=== PATIENT | male | born 1960 | race African-American/Black ===

== ENCOUNTER 2018-02-17 16:23 | Emergency (ER) | payer MEDICAID ==
[~2018-02-17] VITALS: Ht 170.2 cm; Wt 85.0 kg
[2018-02-17] MEDS ORDERED: SODIUM CHLORIDE 0.9% 1,000 ML IV ONE (16:39)
[2018-02-17] MEDS ORDERED: NALOXONE HCL 1 MG/ML 2ML VIAL ONE ×2 (16:43→16:48)
[2018-02-17] MEDS ORDERED: NALOXONE HCL 1 MG/ML 2ML VIAL IV ONE (16:45)
[2018-02-17 17:16] LABS: BASOPHILS % 0.5 % (0.0-2.0); EOSINOPHILS % 0.6 % (0.0-5.0); HEMATOCRIT. 34.7 % (42.0-52.0); LYMPHOCYTES % 34.4 % (20.0-50.0); MEAN CORPUSCULAR HEMOGLOBIN 30.5 pg (28.0-32.0); MEAN CORPUSCULAR VOLUME 88.2 fL (80.0-94.0); MEAN PLATELET VOLUME 7.4 fl (7.4-10.4); MONOCYTES % 5.8 % (2.0-8.0); NEUTROPHILS % 58.7 % (40.0-76.0); PLATELET 339 x1000/uL (130-400); RED BLOOD CELL COUNT 3.94 mill/uL (4.7-6.1); RED CELL DISTRIBUTION WIDTH 16.7 % (11.6-14.6)
[2018-02-17 17:23] LABS: PROTHROMBIN TIME 10.7 sec (9.4-11.6)
[2018-02-17 17:25] LABS: CHLORIDE 108 mEq/L (98-107)
[2018-02-17 17:31] LABS: CREATINE KINASE 145 IU/L (39-308)
[2018-02-17 17:36] LABS: BG BASE EXCESS -7.3 mmol/L (-2.0-2.0); BG CARBOXYHEMOGLOBIN 2.3 % (0.5-1.5); BG DEOXYHEMOGLOBIN 2.1 % (0.0-5.0); BG FRACTION INSPIRED OXYGEN 28; BG HCO3 ACT 17.1 mmol/L (22.0-26.0); BG METHEMOGLOBIN 0.3 % (0.0-1.5); BG OXYGEN SATURATION 97.8 % (92.0-98.5); BG OXYHEMOGLOBIN 95.3 % (94.0-97.0); BG PCO2 31.1 mmHg (35.0-45.0); BG PH 7.357 (7.350-7.450); BG PO2 131.9 mmHg (75.0-100.0); BG SAMPLE SITE RIGHT RADIAL; BG TOTAL HEMOGLOBIN 12.1 g/dL (12.0-18.0); BG VENT MODE NASAL CANNULA
[2018-02-17 17:46] LABS: AMMONIA 77 uMol/L (<32)
[2018-02-17 17:53] LABS: ETHANOL BLOOD 440 mg/dL
[2018-02-17 18:58] LABS: CLARITY URINE CLEAR (CLEAR); COLOR URINE YELLOW (YELLOW); KETONES URINE NEGATIVE (NEGATIVE); LEUKOCYTE ESTERASE URINE NEGATIVE (NEGATIVE); NITRITE URINE NEGATIVE (NEGATIVE); OCCULT BLOOD URINE NEGATIVE (NEGATIVE); PROTEIN URINE NEGATIVE (NEGATIVE); SPECIFIC GRAVITY URINE 1.009 (1.005-1.030); UROBILINOGEN URINE 0.2 E.U./dL (0.2-1.0)
[2018-02-17] MEDS ORDERED: LORAZEPAM 2MG/ML CPJ IV ONE (19:00)
[2018-02-17 19:08] LABS: *BARBITURATES SCREEN URINE NEGATIVE (NEGATIVE); *BENZODIAZEPINES SCREEN URINE NEGATIVE (NEGATIVE); *COCAINE SCREEN URINE NEGATIVE (NEGATIVE); CANNABINOID URINE SCREEN NEGATIVE (NEGATIVE)
[2018-02-17 19:09] LABS: *AMPHETAMINES SCREEN URINE NEGATIVE (NEGATIVE); METHADONE URINE SCREEN NEGATIVE (NEGATIVE); OPIATES URINE SCREEN NEGATIVE (NEGATIVE); PHENCYCLIDINE URINE SCREEN NEGATIVE (NEGATIVE)
[2018-02-18 06:19] VITALS: BP 125/85
== END 2018-02-18 08:17 | disposition home or self-care (01) ==
LOC: ER 16:35
DX: T51.0X1A Toxic effect of ethanol, accidental (unintentional), initial encounter (principal); G92 Toxic encephalopathy; F10.129 Alcohol abuse with intoxication, unspecified; Y90.8 Blood alcohol level of 240 mg/100 ml or more; T50.901A Poisoning by unspecified drugs, medicaments and biological substances, accidental (unintentional), initial encounter; F19.10 Other psychoactive substance abuse, uncomplicated; Y92.89 Other specified places as the place of occurrence of the external cause
CPT/HCPCS: 36415; 36600; 70450; 71045; 80053; 80305; 80307; 80329; 81003; 82140; 82375; 82550; 82805; 82962; 84443; 84484; 85025; 85610; 93005; 96361; 96374; 96375; 99285; G0482; J2060; J2310; J7030; Z7610

== ENCOUNTER 2020-03-23 21:59 | Inpatient (IN) | payer MEDICAID ==
[~2020-03-23] VITALS: Ht 170.2 cm; Wt 77.1 kg
[2020-03-23] MEDS ORDERED: KETOROLAC 60MG/2ML VIAL IM ONE (23:00)
[2020-03-24 00:31] LABS: BASOPHILS % 0.7 % (0.0-2.0); EOSINOPHILS % 1.9 % (0.0-5.0); HEMATOCRIT. 36.7 % (42.0-52.0); HEMOGLOBIN. 12.3 g/dL (14.0-18.0); LYMPHOCYTES % 24.6 % (20.0-50.0); MEAN CORPUSCULAR HEMOGLOBIN 30.1 pg (28.0-32.0); MEAN PLATELET VOLUME 7.3 fl (7.4-10.4); NEUTROPHILS % 66.8 % (40.0-76.0); PLATELET 273 x1000/uL (130-400); RED BLOOD CELL COUNT 4.08 mill/uL (4.7-6.1); RED CELL DISTRIBUTION WIDTH 14.3 % (11.6-14.6)
[2020-03-24 00:39] LABS: CHLORIDE 109 mEq/L (98-107)
[2020-03-24 01:41] LABS: PROTHROMBIN TIME 10.7 sec (9.6-11.0)
[2020-03-24 02:13] LABS: BASOPHILS % 0.7 % (0.0-2.0); EOSINOPHILS % 0.8 % (0.0-5.0); HEMATOCRIT. 31.9 % (42.0-52.0); HEMOGLOBIN. 10.8 g/dL (14.0-18.0); LYMPHOCYTES % 16.6 % (20.0-50.0); MEAN CORPUSCULAR VOLUME 88.3 fL (80.0-94.0); MONOCYTES % 5.4 % (2.0-8.0); NEUTROPHILS % 76.5 % (40.0-76.0); PLATELET 262 x1000/uL (130-400); RED BLOOD CELL COUNT 3.61 mill/uL (4.7-6.1); RED CELL DISTRIBUTION WIDTH 14.3 % (11.6-14.6)
[2020-03-24 02:20] LABS: CHLORIDE 109 mEq/L (98-107); INR 0.9; PROTHROMBIN TIME 10.3 sec (9.6-11.0)
[2020-03-24] MEDS ORDERED: CLONIDINE 0.1MG TABLET PO PRN (03:00)
[2020-03-24] MEDS ORDERED: ACETAMINOPHEN 325MG TABLET PO PRN (03:00)
[2020-03-24] MEDS ORDERED: MAGNESIUM/ALUMINUM HYDROXIDE/SIMETHICONE 30ML UDC PO PRN (03:00)
[2020-03-24] MEDS ORDERED: ONDANSETRON HCL 4MG/2ML INJ IV PRN (03:00)
[2020-03-24] MEDS ORDERED: SODIUM CHLORIDE 0.9% 1,000 ML IV SCH (03:13)
[2020-03-24] MEDS ORDERED: DIPHENHYDRAMINE 50MG/ML VIAL IV ONE ×2 (03:15)
[2020-03-24] MEDS ORDERED: IOHEXOL-300 100 ML BOTTLE ONE (03:53)
[2020-03-24] MEDS: DEXT 5%/0.45% NACL 1000ML 1,000 ML IV SCH (04:48)
[2020-03-24 10:15] VITALS: BP 133/88
[2020-03-24] MEDS: AMLODIPINE 10MG TABLET PO SCH (10:30)
[2020-03-24] MEDS: ENOXAPARIN 40MG/0.4ML SYR SUBCUT SCH (11:00)
[2020-03-24] MEDS ORDERED: BACITRACIN 50,000 UNITS/VIAL ONE (11:40)
[2020-03-24] MEDS ORDERED: VANCOMYCIN HCL 1 GM/VIAL ONE (11:40)
[2020-03-24 12:00] VITALS: BP 138/88
[2020-03-24] MEDS: MORPHINE SULFATE 2 MG/ML CPJ (NOT FOR IM USE) IV PRN ×2 (12:26→19:33)
[2020-03-24] MEDS ORDERED: FENTANYL CITRATE/PF 50MCG/ML 2ML VIAL ONE (14:40)
[2020-03-24] MEDS ORDERED: LIDOCAINE HCL/PF 1% 10 MG/ML 5ML VIAL ONE (14:41)
[2020-03-24] MEDS ORDERED: PROPOFOL 200MG/20ML VIAL IV ONE (14:41)
[2020-03-24] MEDS ORDERED: MIDAZOLAM HCL 2 MG/2 ML VIAL ONE (14:41)
[2020-03-24] MEDS ORDERED: ROCURONIUM BROMIDE 10MG/ML VIAL 5ML IV ONE (14:47)
[2020-03-24] MEDS: CEFAZOLIN 1000MG PREMIX 50 ML IV SCH ×2 (15:00→23:53)
[2020-03-24] MEDS ORDERED: SUCCINYLCHOLINE CHLORIDE 200MG/10ML IV ONE (15:01)
[2020-03-24] MEDS ORDERED: ONDANSETRON HCL 4MG/2ML INJ ONE (15:04)
[2020-03-24] MEDS ORDERED: METOCLOPRAMIDE HCL 10MG/2ML VIAL ONE (15:04)
[2020-03-24] MEDS ORDERED: SODIUM CHLORIDE 0.9% 10ML VIAL ONE (15:06)
[2020-03-24] MEDS ORDERED: CEFAZOLIN SODIUM 1000MG/VIAL ONE (15:06)
[2020-03-24] MEDS ORDERED: EPHEDRINE SULFATE 50MG/ML VIAL ONE (15:06)
[2020-03-24 20:00] VITALS: BP 136/80
[2020-03-24] MEDS: HYDROCODONE/ACETAMINOPHEN 5/325MG TABLET PO PRN (23:59)
[2020-03-25] VITALS: BP 134/81
[2020-03-25 04:00] VITALS: BP 139/84
[2020-03-25] MEDS: HYDROCODONE/ACETAMINOPHEN 5/325MG TABLET PO PRN ×3 (04:22→20:03)
[2020-03-25 06:42] LABS: BASOPHILS % 0.3 % (0.0-2.0); EOSINOPHILS % 3.4 % (0.0-5.0); HEMATOCRIT. 28.3 % (42.0-52.0); HEMOGLOBIN. 9.5 g/dL (14.0-18.0); LYMPHOCYTES % 15.2 % (20.0-50.0); MEAN CORPUSCULAR HEMOGLOBIN 30.3 pg (28.0-32.0); MEAN CORPUSCULAR VOLUME 89.7 fL (80.0-94.0); MEAN PLATELET VOLUME 7.5 fl (7.4-10.4); MONOCYTES % 7.5 % (2.0-8.0); NEUTROPHILS % 73.6 % (40.0-76.0); PLATELET 236 x1000/uL (130-400); RED BLOOD CELL COUNT 3.15 mill/uL (4.7-6.1); RED CELL DISTRIBUTION WIDTH 14.2 % (11.6-14.6)
[2020-03-25 08:00] VITALS: BP 129/79
[2020-03-25] MEDS: ENOXAPARIN 40MG/0.4ML SYR SUBCUT SCH (08:32)
[2020-03-25] MEDS: AMLODIPINE 10MG TABLET PO SCH (08:33)
[2020-03-25] MEDS ORDERED: POTASSIUM CHLORIDE 20MEQ TABLET SR PO NR (10:15)
[2020-03-25 10:33] LABS: CHLORIDE 107 mEq/L (98-107)
[2020-03-25] MEDS: MORPHINE SULFATE 2 MG/ML CPJ (NOT FOR IM USE) IV PRN ×2 (10:54→22:10)
[2020-03-25 20:00] VITALS: BP 141/80
[2020-03-26] MEDS: HYDROCODONE/ACETAMINOPHEN 5/325MG TABLET PO PRN ×5 (00:05→22:20)
[2020-03-26] MEDS: MORPHINE SULFATE 2 MG/ML CPJ (NOT FOR IM USE) IV PRN ×2 (02:19→20:24)
[2020-03-26 04:00] VITALS: BP 146/79
[2020-03-26 07:37] LABS: BASOPHILS % 0.3 % (0.0-2.0); EOSINOPHILS % 2.9 % (0.0-5.0); HEMATOCRIT. 29.3 % (42.0-52.0); HEMOGLOBIN. 10.1 g/dL (14.0-18.0); LYMPHOCYTES % 14.6 % (20.0-50.0); MEAN CORPUSCULAR HEMOGLOBIN 30.6 pg (28.0-32.0); MEAN PLATELET VOLUME 7.6 fl (7.4-10.4); NEUTROPHILS % 72.2 % (40.0-76.0); PLATELET 265 x1000/uL (130-400); RED BLOOD CELL COUNT 3.29 mill/uL (4.7-6.1); RED CELL DISTRIBUTION WIDTH 14.2 % (11.6-14.6)
[2020-03-26 08:00] VITALS: BP 147/83
[2020-03-26] MEDS: ENOXAPARIN 40MG/0.4ML SYR SUBCUT SCH (08:50)
[2020-03-26] MEDS: AMLODIPINE 10MG TABLET PO SCH (08:50)
[2020-03-26 12:00] VITALS: BP 120/69
[2020-03-26] MEDS ORDERED: PIPERONYL/PYRETHRINS (RID)120 ML SHAMPOO TOP NR (12:00)
[2020-03-26 16:00] VITALS: BP 127/85
[2020-03-26] MEDS: DEXT 5%/0.45% NACL 1000ML 1,000 ML IV SCH ×2 (17:37→20:30)
[2020-03-26 20:00] VITALS: BP 127/78
[2020-03-27] VITALS: BP 142/81
[2020-03-27] MEDS: MORPHINE SULFATE 2 MG/ML CPJ (NOT FOR IM USE) IV PRN (03:08)
[2020-03-27 04:00] VITALS: BP 128/68
[2020-03-27 08:00] VITALS: BP 135/63
[2020-03-27] MEDS: ENOXAPARIN 40MG/0.4ML SYR SUBCUT SCH ×2 (08:09→08:12)
[2020-03-27] MEDS: AMLODIPINE 10MG TABLET PO SCH (08:09)
[2020-03-27] MEDS: HYDROCODONE/ACETAMINOPHEN 5/325MG TABLET PO PRN ×3 (08:09→20:24)
[2020-03-27] MEDS: DEXT 5%/0.45% NACL 1000ML 1,000 ML IV SCH (10:38)
[2020-03-27 12:00] VITALS: BP 109/59
[2020-03-27 16:00] VITALS: BP 121/81
[2020-03-27 20:00] VITALS: BP 118/72
[2020-03-28] VITALS: BP 114/72
[2020-03-28] MEDS: MORPHINE SULFATE 2 MG/ML CPJ (NOT FOR IM USE) IV PRN ×2 (00:54→05:44)
[2020-03-28] MEDS: DEXT 5%/0.45% NACL 1000ML 1,000 ML IV SCH ×2 (00:55→14:09)
[2020-03-28 08:00] VITALS: BP 134/72
[2020-03-28] MEDS: AMLODIPINE 10MG TABLET PO SCH (08:43)
[2020-03-28] MEDS: HYDROCODONE/ACETAMINOPHEN 5/325MG TABLET PO PRN ×3 (08:43→21:31)
[2020-03-28] MEDS: ENOXAPARIN 40MG/0.4ML SYR SUBCUT SCH (08:44)
[2020-03-28 12:00] VITALS: BP 99/55
[2020-03-28 16:00] VITALS: BP 114/66
[2020-03-28 20:00] VITALS: BP 131/70
[2020-03-29] VITALS (7 sets, daily range): BP systolic 107–139; BP diastolic 56–78
[2020-03-29] MEDS: POLYETHYLENE GLYCOL 3350 (17GM) 1 DOSE PACK PO SCH ×2 (00:28→20:25)
[2020-03-29] MEDS: HYDROCODONE/ACETAMINOPHEN 5/325MG TABLET PO PRN (01:32)
[2020-03-29] MEDS: DEXT 5%/0.45% NACL 1000ML 1,000 ML IV SCH ×2 (01:37→16:11)
[2020-03-29] MEDS ORDERED: HYDROCODONE/ACETAMINOPHEN 5/325MG TABLET PO PRN (03:45)
[2020-03-29] MEDS: MORPHINE SULFATE 2 MG/ML CPJ (NOT FOR IM USE) IV PRN ×3 (03:47→20:20)
[2020-03-29] MEDS: AMLODIPINE 10MG TABLET PO SCH (08:35)
[2020-03-29] MEDS: ENOXAPARIN 40MG/0.4ML SYR SUBCUT SCH ×2 (08:35→08:42)
[2020-03-29] MEDS: DOCUSATE SODIUM 100MG CAPSULE PO SCH ×2 (08:35→17:46)
[2020-03-29] MEDS ORDERED: COLC0.6C3 MT (11:35)
[2020-03-29] MEDS ORDERED: HYDR-3281 MT (11:35)
[2020-03-29] MEDS: COLCHICINE 0.6MG TABLET PO SCH ×2 (13:09→20:19)
[2020-03-30] VITALS: BP 111/64
[2020-03-30] MEDS: MORPHINE SULFATE 2 MG/ML CPJ (NOT FOR IM USE) IV PRN ×2 (03:23→09:02)
[2020-03-30 04:00] VITALS: BP 100/53
[2020-03-30 08:00] VITALS: BP 106/60
[2020-03-30] MEDS: DOCUSATE SODIUM 100MG CAPSULE PO SCH (09:00)
[2020-03-30] MEDS: ENOXAPARIN 40MG/0.4ML SYR SUBCUT SCH (09:00)
[2020-03-30] MEDS: COLCHICINE 0.6MG TABLET PO SCH (09:01)
[2020-03-30] MEDS: AMLODIPINE 10MG TABLET PO SCH (09:01)
[2020-03-30] MEDS ORDERED: HYDR-4005 MT (10:51)
[2020-03-30 12:00] VITALS: BP 114/60
== END 2020-03-30 13:20 | disposition home or self-care (01) | DRG 308 ==
LOC: ER 21:59 → 6EST 03-24 01:58 → ENRESERV 03-24 09:24 → 6EST 03-24 10:15
PROVIDERS: ADMIT Hospitalist; ATTEND Hospitalist
PROC: 0QS606Z Reposition Right Upper Femur with Intramedullary Internal Fixation Device, Open Approach (ICD-10-PCS; principal; 2020-03-24)
DX: S72.141A Displaced intertrochanteric fracture of right femur, initial encounter for closed fracture (principal); N28.1 Cyst of kidney, acquired; K42.9 Umbilical hernia without obstruction or gangrene; M10.9 Gout, unspecified; R53.81 Other malaise; R26.9 Unspecified abnormalities of gait and mobility; D64.9 Anemia, unspecified; R73.9 Hyperglycemia, unspecified; I10 Essential (primary) hypertension; V18.4XXA Pedal cycle driver injured in noncollision transport accident in traffic accident, initial encounter; Z88.8 Allergy status to other drugs, medicaments and biological substances; Z91.041 Radiographic dye allergy status; Z82.49 Family history of ischemic heart disease and other diseases of the circulatory system; Y92.89 Other specified places as the place of occurrence of the external cause; Y93.55 Activity, bike riding; Y99.8 Other external cause status
CPT/HCPCS: 36415; 71045; 73502; 74177; 76000; 80053; 83735; 85025; 93005; 97110; 97116; 97162; 97166; 97530; 97535; 99291; C1713; J0330; J0690; J1200; J1650; J1885; J2250; J2270; J2405; J2704; J2765; J3010; J3370; J3490; Q9967